=== PATIENT | female | born 1955 | race African-American/Black ===

== ENCOUNTER 2016-12-24 08:26 | Inpatient (IN) | payer OTHER, MEDICARE ==
[~2016-12-24] VITALS: Ht 157.5 cm; Wt 45.2 kg
[~2016-12-24 08:26] MED LIST: ALPR1TAB3 PO; AZIT250T3 PO; CALCTAB10 PO; CYMB30CA PO; DIVA250ER PO; DUONI NEB; FLUT1SPR9 EACH NARE; MELO15TA2 PO; NAPR500 PO; PREG300 PO; PROZ40CA PO; RISP.5 PO
[2016-12-24 08:29] VITALS: BP 113/71; PULSE 90; RESP 25; TEMP 97.6; O2SAT 98
[2016-12-24] MEDS ORDERED: SODIUM CHLOR 0.9% 1000 ML INJ 1,000 ML IV ONE (08:37)
[2016-12-24 08:41] VITALS: O2SAT 98
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
[2016-12-24] MEDS ORDERED: SODIUM CHLORIDE 0.9% FLUSH 10 ML FLUSH IVF PRN (08:45)
[2016-12-24 09:15] LABS: AUTOMATED NEUTROPHIL # 3.2 TH/MM3 (1.8-7.7); BASOPHIL % 0.4 % (0.0-2.0); EOSINOPHIL # 0.1 TH/MM3 (0-0.4); EOSINOPHIL % 2.3 % (0.0-4.0); HEMATOCRIT 27.6 % (35.0-46.0); HEMO FLAGS DIFF FINAL; LYMPH % 31.4 % (9.0-44.0); LYMPHOCYTE # 1.7 TH/MM3 (1.0-4.8); MEAN CELL VOLUME 92.1 FL (80.0-100.0); MEAN CORPUSCULAR HEMOGLOBIN 29.8 PG (27.0-34.0); MEAN CORPUSCULAR HGB CONC 32.3 % (32.0-36.0); MONO % 6.2 % (0.0-8.0); NEUT % 59.7 % (16.0-70.0); PLATELET COUNT 129 TH/MM3 (150-450); WHITE BLOOD COUNT 5.3 TH/MM3 (4.0-11.0)
--- NOTE | 2016-12-24 09:32 | RADRPT ---
EXAM DATE/TIME: 12/24/2016 09:12 [place] COMPARISON: CT BRAIN W/O CONTRAST, April 18, 2016, 14:52. INDICATIONS : Seizure. RADIATION DOSE: 56.35 CTDIvol (mGy) MEDICAL HISTORY : Seizures. Cardiovascular disease Hypertension. SURGICAL HISTORY : None. ENCOUNTER: Initial ACUITY: 1 day PAIN SCALE: Non-responsive LOCATION: cranial TECHNIQUE: Multiple contiguous axial images were obtained of the head. Using automated exposure control and adj ustment of the mA and/or kV according to patient size, radiation dose was kept as low as reasonably a chievable to obtain optimal diagnostic quality images. DICOM format image data is available electro nically for review and comparison. FINDINGS: CEREBRUM: The ventricles are normal for age. No evidence of midline shift, mass lesion, hemorrhage or acute in farction. No extra-axial fluid collections are seen. POSTERIOR FOSSA: The cerebellum and brainstem are intact. The 4th ventricle is midline. The cerebellopontine angle i s unremarkable. EXTRACRANIAL: The visualized portion of the orbits is intact. SKULL: The calvaria is intact. No evidence of skull fracture. CONCLUSION: Normal examination for a patient of this age. No significant change has occurred. Alex Trammell MD on December 24, 2016 at 9:28 Board Certified Radiologist. This report was verified electronically.
[2016-12-24 09:34] LABS: BACTERIA, URINE MOD /hpf; BLOOD, URINE SMALL (NEG); GLUCOSE,URINE NEG (NEG); HYALINE CAST, URINE 14 /lpf (RARE); KETONE, URINE TRACE mg/dL (NEG); MUCUS URINE FEW /lpf (OCC); NITRITE,URINE POS (NEG); PH, URINE 5.5 (5.0-8.5); SQUAMOUS EPITHELIAL CELL URINE <1 /hpf (0-5); URINE COLOR YELLOW (YELLW/STRAW)
[2016-12-24 09:35] LABS: AMPHETAMINE, URINE NEG (NEG); BARBITURATES, URINE NEG (NEG); COCAINE, URINE POS (NEG); COMMENT (UR) CATH; COMMENT2 (UR) CATH
[2016-12-24 09:36] LABS: ANION GAP 5 MEQ/L (5-15); AST (GOT) 13 U/L (15-37); BICARBONATE 23.6 MEQ/L (21.0-32.0); BLOOD UREA NITROGEN 32 MG/DL (7-18); CHLORIDE 117 MEQ/L (98-107); GLOMERULAR FILTRATION RATE 32 ML/MIN (>89); POTASSIUM 3.5 MEQ/L (3.5-5.1); SODIUM (NA) 146 MEQ/L (136-145)
[2016-12-24 09:40] LABS: ALKALINE PHOSPHATASE 50 U/L (45-117); ALT (GPT) 10 U/L (10-53); CALCIUM-PROTEIN CORRECTED 7.8 MG/DL (8.5-10.1); TOTAL BILIRUBIN ADULT 0.4 MG/DL (0.2-1.0)
[2016-12-24] MEDS ORDERED: cefTRIAXone INJ 1,000 MG in SODIUM CHLORIDE 0.9% INJ 100 ML IV ONE (09:45)
[2016-12-24] MEDS ORDERED: ACETAMINOPHEN 325 MG TAB PO PRN (10:15)
[2016-12-24] MEDS ORDERED: NALOXONE HCL 0.4 MG/ML AMP IV PRN (10:15)
[2016-12-24] MEDS ORDERED: SODIUM CHLORIDE 0.9% FLUSH 10 ML FLUSH IV FLUSH PRN (10:15)
[2016-12-24] MEDS ORDERED: MAGNESIUM HYDROXIDE SUSP 30 ML CUP PO PRN (10:15)
[2016-12-24] MEDS ORDERED: ONDANSETRON HCL 4 MG/2 ML VIAL IVP PRN (10:15)
[2016-12-24] MEDS: SODIUM CHLOR 0.9% 1000 ML INJ 1,000 ML IV SCH ×3 (10:40→19:38)
[2016-12-24 12:09] VITALS: BP 132/72; PULSE 52; RESP 16; TEMP 95.7; O2SAT 99
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
[2016-12-24] MEDS ORDERED: LORazepam 2 MG/ML VIAL IV PRN (14:15)
--- NOTE | 2016-12-24 15:14 | EKG ---
Date Performed: 12/24/2016 Time Performed: 08:34:37 PTAGE: 61 years EKG: Sinus rhythm Since previous tracing, no significant change noted NORMAL ECG PREVIOUS TRACING : 04/18/2016 20.09 DOCTOR: Paolo Donnelly Interpretating Date/Time 12/24/2016 15:13:36
[2016-12-24 16:00] VITALS: BP 124/75; PULSE 54; RESP 16; TEMP 95.3; O2SAT 100
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
[2016-12-24 20:00] VITALS: BP 113/75; PULSE 58; RESP 20; TEMP 96.3; O2SAT 100
[2016-12-24] MEDS: SODIUM CHLORIDE 0.9% FLUSH 10 ML FLUSH IV FLUSH SCH (21:42)
[2016-12-25] VITALS: BP 113/75; PULSE 58; RESP 20; TEMP 96.3; O2SAT 100
[2016-12-25 04:00] VITALS: BP 156/79; PULSE 68; RESP 20; TEMP 97.5; O2SAT 98
[2016-12-25] MEDS: SODIUM CHLOR 0.9% 1000 ML INJ 1,000 ML IV SCH ×2 (05:12→15:33)
[2016-12-25 07:28] LABS: AUTOMATED NEUTROPHIL # 2.4 TH/MM3 (1.8-7.7); BASOPHIL % 0.5 % (0.0-2.0); EOSINOPHIL # 0.1 TH/MM3 (0-0.4); EOSINOPHIL % 1.8 % (0.0-4.0); HEMATOCRIT 32.4 % (35.0-46.0); HEMO FLAGS DIFF FINAL; LYMPH % 35.1 % (9.0-44.0); LYMPHOCYTE # 1.5 TH/MM3 (1.0-4.8); MEAN CELL VOLUME 91.3 FL (80.0-100.0); MEAN CORPUSCULAR HGB CONC 32.9 % (32.0-36.0); MONO % 7.5 % (0.0-8.0); NEUT % 55.1 % (16.0-70.0); PLATELET COUNT 145 TH/MM3 (150-450); RED BLOOD COUNT 3.55 MIL/MM3 (4.00-5.30); RED CELL DISTRIBUTION WIDTH 14.7 % (11.6-17.2); WHITE BLOOD COUNT 4.4 TH/MM3 (4.0-11.0)
[2016-12-25 08:04] LABS: ALKALINE PHOSPHATASE 66 U/L (45-117); ALT (GPT) 12 U/L (10-53); ANION GAP 5 MEQ/L (5-15); AST (GOT) 13 U/L (15-37); BICARBONATE 27.2 MEQ/L (21.0-32.0); BLOOD UREA NITROGEN 24 MG/DL (7-18); CHLORIDE 113 MEQ/L (98-107); GLOMERULAR FILTRATION RATE 79 ML/MIN (>89); POTASSIUM 4.2 MEQ/L (3.5-5.1); SODIUM (NA) 145 MEQ/L (136-145); TOTAL BILIRUBIN ADULT 0.2 MG/DL (0.2-1.0)
[2016-12-25 08:29] VITALS: BP 133/84; PULSE 61; RESP 20; TEMP 97.7; O2SAT 97
[2016-12-25] MEDS ORDERED: MISCELLANEOUS NURSING INFORMATION ONE (09:00)
[2016-12-25] MEDS: cefTRIAXone INJ 1,000 MG in SODIUM CHLORIDE 0.9% INJ 100 ML IV SCH (09:15)
[2016-12-25] MEDS: SODIUM CHLORIDE 0.9% FLUSH 10 ML FLUSH IV FLUSH SCH ×2 (09:15→21:44)
[2016-12-25 12:19] VITALS: BP 132/89; PULSE 60; RESP 20; TEMP 97.2; O2SAT 100
--- NOTE | 2016-12-25 13:04 | HHI.PR ---
Subjective Remarks Follow-up seizure disorder/UTI 12/25/16-patient seen and examined, no reported seizure activity since admission. Alert and oriented 3. Currently afebrile. Abnormal EEG Objective Vitals Vital Signs Date Time Temp Pulse Resp B/P Pulse Ox O2 Delivery O2 Flow Rate FiO2 12/25/16 12:19 97.2 60 20 132/89 100 12/25/16 08:29 97.7 61 20 133/84 97 12/25/16 04:00 97.5 68 20 156/79 98 12/25/16 00:00 96.3 58 20 113/75 100 12/24/16 20:00 96.3 58 20 113/75 100 12/24/16 16:00 95.3 54 16 124/75 100 I/O 12/24/16 12/24/16 12/24/16 12/25/16 12/25/16 12/25/16 07:00 15:00 23:00 07:00 15:00 23:00 Intake Total 220 ml 1258 ml Balance 220 ml 1258 ml Intake Oral 220 ml IV Total 1258 ml # Voids 2 3 Result Diagram: 12/25/16 0624 12/25/16 0624 Imaging Last Impressions Head CT 12/24/16 0000 Signed Impressions: Service Date/Time: Saturday, December 24, 2016 09:12 - CONCLUSION: Normal examination for a patient of this age. No significant change has occurred. Alex Trammell MD Objective Remarks GENERAL: NAD SKIN: Warm and dry. HEAD: Normocephalic. EYES: No scleral icterus. No injection or drainage. NECK: Supple, trachea midline. No JVD or lymphadenopathy. CARDIOVASCULAR: Regular rate and rhythm without murmurs, gallops, or rubs. RESPIRATORY: Breath sounds equal bilaterally. No accessory muscle use. GASTROINTESTINAL: Abdomen soft, non-tender, nondistended. MUSCULOSKELETAL: No cyanosis, or edema. BACK: Nontender without obvious deformity. No CVA tenderness. A/P Problem List: (1) Seizure ICD Code: R56.9 Status: Acute (2) UTI (urinary tract infection) ICD Code: N39.0 Status: Acute (3) HECTOR (acute kidney injury) ICD Code: N17.9 Status: Acute (4) HTN (hypertension) ICD Code: I10 Status: Acute Assessment and Plan 61-year-old female with Seizure disorder Noncompliance with medical care Head CT with Normal examination for a patient of this age. No significant change has occurred UDS positive for cocaine and cannabinoids, UA positive for leukocyte esterase Seizure precaution, Ativan when necessary Abnormal EEG due to mild slowing consistent with an encephalopathic process of various etiology, no overt epileptiform activity seen Neurology consultation pending UTI On Rocephin IV daily pending urine culture Acute renal failure-resolved Prerenal secondary to dehydration Continue with IV fluid hydration and monitor BUN and creatinine. Avoid all nephrotoxic drugs Tox screen positive for cocaine, cannabinoid Counseled to quit History of hypertension Currently normotensive DVT prophylaxis Heparin Problem Qualifiers (1) UTI (urinary tract infection): Qualified Code: N39.0 - Urinary tract infection without hematuria, site unspecified Galo Burton MD Dec 25, 2016 13:04
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
[2016-12-25 16:24] VITALS: BP 136/81; PULSE 60; RESP 20; TEMP 98.7; O2SAT 100
[2016-12-25 20:00] VITALS: BP 129/86; PULSE 66; RESP 20; TEMP 97.4; O2SAT 99
[2016-12-25] MEDS: DIVALPROEX SODIUM DELAYED RELEASE 250 MG TAB PO SCH (21:44)
[2016-12-26] VITALS: BP 153/94; PULSE 57; RESP 20; TEMP 98; O2SAT 97
[2016-12-26] MEDS ORDERED: IBUPROFEN 400 MG TAB PO ONE (01:30)
[2016-12-26] MEDS: SODIUM CHLOR 0.9% 1000 ML INJ 1,000 ML IV SCH (01:48)
[2016-12-26 06:53] VITALS: BP 131/79; PULSE 61; RESP 20; TEMP 97.4; O2SAT 100
[2016-12-26] MEDS: SODIUM CHLORIDE 0.9% FLUSH 10 ML FLUSH IV FLUSH SCH (07:56)
[2016-12-26] MEDS: cefTRIAXone INJ 1,000 MG in SODIUM CHLORIDE 0.9% INJ 100 ML IV SCH (08:02)
[2016-12-26] MEDS: DIVALPROEX SODIUM DELAYED RELEASE 250 MG TAB PO SCH (08:03)
[2016-12-26 08:40] VITALS: BP 138/87; PULSE 59; RESP 20; TEMP 96.9; O2SAT 97
--- NOTE | 2016-12-26 09:25 | HHI.PR ---
Subjective Remarks Follow-up seizure disorder/UTI 12/25/16-patient seen and examined, no reported seizure activity since admission. Alert and oriented 3. Currently afebrile. Abnormal EEG 12/26/16-patient seen and examined, stable and no complaint. No acute event overnight. Currently on Depakote 250 mg twice a day Objective Vitals Vital Signs Date Time Temp Pulse Resp B/P Pulse Ox O2 Delivery O2 Flow Rate FiO2 12/26/16 08:40 96.9 59 20 138/87 97 12/26/16 06:53 97.4 61 20 131/79 100 12/26/16 00:00 98.0 57 20 153/94 97 12/25/16 20:00 97.4 66 20 129/86 99 12/25/16 16:24 98.7 60 20 136/81 100 12/25/16 12:19 97.2 60 20 132/89 100 I/O 12/25/16 12/25/16 12/25/16 12/26/16 12/26/16 12/26/16 07:00 15:00 23:00 07:00 15:00 23:00 Intake Total 1258 ml 800 ml 1165 ml 829 ml Balance 1258 ml 800 ml 1165 ml 829 ml Intake Oral 300 ml IV Total 1258 ml 800 ml 865 ml 829 ml # Voids 3 7 4 # Bowel Movements 0 0 Result Diagram: 12/25/16 0624 12/25/16 0624 Imaging Last Impressions Head CT 12/24/16 0000 Signed Impressions: Service Date/Time: Saturday, December 24, 2016 09:12 - CONCLUSION: Normal examination for a patient of this age. No significant change has occurred. Alex Trammell MD Objective Remarks GENERAL: NAD SKIN: Warm and dry. HEAD: Normocephalic. EYES: No scleral icterus. No injection or drainage. NECK: Supple, trachea midline. No JVD or lymphadenopathy. CARDIOVASCULAR: Regular rate and rhythm without murmurs, gallops, or rubs. RESPIRATORY: Breath sounds equal bilaterally. No accessory muscle use. GASTROINTESTINAL: Abdomen soft, non-tender, nondistended. MUSCULOSKELETAL: No cyanosis, or edema. BACK: Nontender without obvious deformity. No CVA tenderness. Procedures none A/P Problem List: (1) Recurrent seizures ICD Code: G40.909 Status: Acute (2) Seizure ICD Code: R56.9 Status: Acute (3) UTI (urinary tract infection) ICD Code: N39.0 Status: Acute (4) HECTOR (acute kidney injury) ICD Code: N17.9 Status: Acute (5) HTN (hypertension) ICD Code: I10 Status: Acute Assessment and Plan 61-year-old female with Recurrent Seizure Noncompliance with medical care Head CT with Normal examination for a patient of this age. No significant change has occurred UDS positive for cocaine and cannabinoids, UA positive for leukocyte esterase Seizure precaution, Ativan when necessary Abnormal EEG due to mild slowing consistent with an encephalopathic process of various etiology, no overt epileptiform activity seen Neurology consultation appreciated Continue with Depakote 250 mg twice a day UTI On Rocephin IV daily pending urine culture, switch to by mouth Cipro 500 mg twice a day 7 days Acute renal failure-resolved Prerenal secondary to dehydration Continue with IV fluid hydration and monitor BUN and creatinine. Avoid all nephrotoxic drugs Tox screen positive for cocaine, cannabinoid Counseled to quit History of hypertension Currently normotensive DVT prophylaxis Heparin Problem Qualifiers (1) UTI (urinary tract infection): Qualified Code: N39.0 - Urinary tract infection without hematuria, site unspecified Galo Burton MD Dec 26, 2016 09:25
[2016-12-26] MEDS ORDERED: CIPR-9 PO (09:27)
[2016-12-26] MEDS ORDERED: DIVA250T PO (09:27)
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
== END 2016-12-26 11:21 | disposition home or self-care (01) | DRG 100 ==
LOC: NEPE 08:26 → NEDA 10:05 → N05A 11:56
PROVIDERS: ADMIT Hospitalist; ATTEND Hospitalist
DX: G40.909 Epilepsy, unspecified, not intractable, without status epilepticus (principal); G93.40 Encephalopathy, unspecified; N17.9 Acute kidney failure, unspecified; I95.9 Hypotension, unspecified; N12 Tubulo-interstitial nephritis, not specified as acute or chronic; E86.0 Dehydration; R00.1 Bradycardia, unspecified; M19.90 Unspecified osteoarthritis, unspecified site; F41.9 Anxiety disorder, unspecified; F32.9 Major depressive disorder, single episode, unspecified; I10 Essential (primary) hypertension; M79.7 Fibromyalgia; G43.909 Migraine, unspecified, not intractable, without status migrainosus; E07.9 Disorder of thyroid, unspecified; F17.210 Nicotine dependence, cigarettes, uncomplicated; Z91.14 Patient's other noncompliance with medication regimen; R78.89 Finding of other specified substances, not normally found in blood
CPT/HCPCS: 70450; 80053; 80164; 80185; 80307; 81001; 83605; 85025; 87040; 93005; 95819; 96361; 96374; J0696; J7030; P9612